=== PATIENT | male | born 1955 | race Caucasian/White ===

== ENCOUNTER 2016-04-06 06:10 | Emergency (ER) | payer OTHER ==
[2016-04-06] MEDS ORDERED: MECLIZINE 12.5 MG TABLET PO STA ×2 (06:49→09:11)
[2016-04-06] MEDS ORDERED: MECLIZINE 12.5 MG TABLET PO ONE ×2 (06:56→09:15)
[2016-04-06] MEDS ORDERED: ONDANSETRON ODT 4 MG TABLET TL STA (09:11)
[2016-04-06] MEDS ORDERED: ONDANSETRON ODT 4 MG TABLET ONE (09:15)
== END 2016-04-06 10:21 | disposition home or self-care (01) ==
DX: R42 Dizziness and giddiness (principal); I10 Essential (primary) hypertension; E78.00 Pure hypercholesterolemia, unspecified; M54.9 Dorsalgia, unspecified; G89.29 Other chronic pain
CPT/HCPCS: 36415; 70450; 80048; 85025; 99283; 99284; A9270; Q0162

== ENCOUNTER 2016-04-10 10:08 | Emergency (ER) | payer OTHER ==
[2016-04-10] MEDS ORDERED: diphenhydrAMINE 25 MG CAPSULE PO STA (11:24)
[2016-04-10] MEDS ORDERED: diazePAM 5 MG TABLET PO STA (11:24)
[2016-04-10] MEDS ORDERED: PROMETHAZINE 25 MG TABLET PO STA (11:24)
[2016-04-10] MEDS ORDERED: PROMETHAZINE 25 MG TABLET ONE (11:28)
[2016-04-10] MEDS ORDERED: diazePAM 5 MG TABLET PO ONE (11:28)
[2016-04-10] MEDS ORDERED: diphenhydrAMINE ELIXIR 25 MG/10 ML UDC PO ONE (11:28)
[2016-04-10] MEDS ORDERED: oxyCODONE 5 MG TABLET PO STA (13:10)
[2016-04-10] MEDS ORDERED: oxyCODONE 5 MG TABLET ONE (13:12)
== END 2016-04-10 13:28 | disposition home or self-care (01) ==
DX: R42 Dizziness and giddiness (principal); R51 Headache; R11.2 Nausea with vomiting, unspecified; I10 Essential (primary) hypertension
CPT/HCPCS: 99283; 99284; A9270; Q0169

== ENCOUNTER 2018-05-17 18:06 | Emergency (ER) | payer OTHER ==
[2018-05-17] MEDS ORDERED: predniSONE 20 MG TABLET PO STA (19:09)
[2018-05-17] MEDS ORDERED: guaiFENesin/CODEINE 5 ML UDC PO STA (19:09)
[2018-05-17] MEDS ORDERED: AMOX/CLAV 875 MG/125 MG TABLET PO STA (19:09)
[2018-05-17] MEDS ORDERED: ALBUTEROL NEB 2.5 MG/3 ML INH STA (19:09)
--- NOTE | 2018-05-17 19:09 | ED Physician Documentation ---
PD HPI URI - Stated complaint Stated Complaint: CONGESTION - Chief complaint Chief Complaint: Heent - History obtained from History obtained from: Patient - History of Present Illness Timing - onset: Other (Is been sick for 7-10 days with sinus pressure, green and bloody sinus drainage, productive cough and low-grade fevers.) Review of Systems Constitutional: reports: Fever, Fatigue. denies: Chills Ears: reports: Ear pain Nose: reports: Rhinorrhea / runny nose, Congestion, Sinus pressure / pain Throat: reports: Sore throat Respiratory: reports: Cough. denies: Dyspnea PD PAST MEDICAL HISTORY - Past Medical History Cardiovascular: Hypertension, High cholesterol Musculoskeletal: Chronic back pain - Past Surgical History Past Surgical History: Yes Ortho: Spine surgery, Other - Present Medications Home Medications: Ambulatory Orders Medication Instructions Recorded Confirmed Meclizine HCl 25 - 50 mg PO Q6HR PRN #30 tab.chew 04/06/16 Ondansetron Odt [Zofran] 4 mg TL Q6H PRN #20 tablet 04/06/16 Esomeprazole Magnesium [Nexium] 04/10/16 Fexofenadine HCl [Rekha Allergy] 04/10/16 Fluticasone [Flonase] 04/10/16 Fluticasone [Flonase] 1 sprays ERIBERTO BID PRN #1 bottle 04/10/16 Indomethacin [Indocin] 04/10/16 Lisinopril/Hydrochlorothiazide 04/10/16 [Lisinopril-Hctz 20-25 mg Tab] Loratadine [Claritin] 10 mg PO DAILY PRN #10 tablet 04/10/16 Meloxicam 04/10/16 Metoprolol Succinate [Toprol Xl] 04/10/16 Oxycodone HCl/Acetaminophen 1 each PO Q6HR PRN #5 tablet 04/10/16 [Percocet 5-325 mg Tablet] Promethazine [Phenergan] 12.5 mg PO Q6H PRN #15 tablet 04/10/16 Ranitidine HCl [Acid Theatrical Agent] 04/10/16 Simvastatin 04/10/16 Terazosin HCl 04/10/16 diazePAM [Valium] 5 mg PO Q8H PRN #15 tablet 04/10/16 hydroCHLOROthiazide [Hydrodiuril] 04/10/16 Albuterol Sulf [Ventolin Hfa 1 - 2 puffs INH Q4HR PRN #1 inhaler 05/17/18 Inhaler] Amox/Clav 875/125 [Augmentin] 1 each PO Q12H #20 tablet 05/17/18 guaiFENesin/CODEINE [Robitussin AC] 5 - 10 ml PO Q6H PRN #120 ml 05/17/18 predniSONE [Deltasone] 60 mg PO DAILY 5 Days tablet 05/17/18 - Allergies Allergies/Adverse Reactions: Allergies Allergy/AdvReac Type Severity Reaction Status Date / Time No Known Drug Allergies Allergy Verified 04/06/16 06:23 - Social History Does the pt smoke?: No Smoking Status: Never smoker Does the pt drink ETOH?: Yes Does the pt have substance abuse?: No - Immunizations Immunizations are current?: Yes - POLST Patient has POLST: No PD ED PE NORMAL - Vitals Vital signs reviewed: Yes - General General: Alert and oriented X 3, No acute distress - HEENT HEENT: Ears normal, Pharynx benign - Neck Neck: Supple, no meningeal sign, No bony TTP - Cardiac Cardiac: RRR, No murmur - Respiratory Respiratory: No respiratory distress, Clear bilaterally - Abdomen Abdomen: Non tender - Derm Derm: No rash - Extremities Extremities: No edema, No calf tenderness / cord - Neuro Neuro: Alert and oriented X 3, Normal speech Results - Vitals Vitals: Vital Signs - 24 hr 05/17/18 18:10 Temperature 36.9 C Heart Rate 65 Respiratory 18 Rate Blood Pressure 165/82 H O2 Saturation 98 Oxygen O2 Source Room air Departure - Departure Disposition: 01 Home, Self Care Clinical Impression: Sinusitis Qualifiers: Sinusitis location: maxillary Chronicity: acute Recurrence: non-recurrent Qualified Code(s): J01.00 - Acute maxillary sinusitis, unspecified Condition: Good Record reviewed to determine appropriate education?: Yes Instructions: ED Sinusitis Abx Tx Prescriptions: Albuterol Sulf [Ventolin Hfa Inhaler] 1 - 2 puffs INH Q4HR PRN #1 inhaler PRN Reason: Shortness Of Air/Wheezing Amox/Clav 875/125 [Augmentin] 1 each PO Q12H #20 tablet guaiFENesin/CODEINE [Robitussin AC] 5 - 10 ml PO Q6H PRN #120 ml PRN Reason: Cough predniSONE [Deltasone] 60 mg PO DAILY 5 Days tablet Comments: Call your doctor to arrange a follow-up appointment, make the next available appointment. In the interim, return anytime if worse or if new symptoms develop. Your blood pressure was elevated today on check into the emergency department. This does not mean that you have hypertension, it is a common phenomenon to come to the emergency department and have elevated blood pressure. I recommend that you see your primary care physician within the week to have it rechecked when you are feeling better.
[2018-05-17 19:34] VITALS: BP 147/78
== END 2018-05-17 19:35 | disposition home or self-care (01) ==
LOC: ED 18:06
DX: J01.00 Acute maxillary sinusitis, unspecified (principal); I10 Essential (primary) hypertension; E78.00 Pure hypercholesterolemia, unspecified
CPT/HCPCS: 94640; 94664; 99283; A9270; J7512